=== PATIENT | male | born 1985 | race Caucasian/White ===

== ENCOUNTER 2016-11-08 20:44 | Emergency (ER) | payer OTHER ==
[2016-11-08 21:08] VITALS: BP 124/75; PULSE 45; RESP 16; O2SAT 97
[2016-11-08] MEDS ORDERED: KETOROLAC 30 MG/1 ML SDV IVP ONE (21:09)
--- NOTE | 2016-11-08 21:10 | UCPHY ---
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 He states that he has had upper back pain in the area of T2 or T3 intermittently over the last couple of weeks. It began after he slept awkwardly on the couch. With massage and chiropractic manipulation his pain resolved for a few days. It then returned once he slept awkwardly on the couch again. Has now been present for several days. He has not had any fevers. He denies any trauma. He does not have any weakness numbness paresthesias or deficits. No bowel or bladder abnormalities. No headache. It does hurt with twisting or Muscular back movements. REVIEW OF SYSTEMS: Constitutional: denies: chills, fever, recent illness, recent injury EENTM: denies: blurred vision, double vision, nose congestion Respiratory: denies: cough, shortness of breath Cardiac: denies: chest pain, irregular heart rate, lightheadedness, palpitations Gastrointestinal/Abdominal: denies: abdominal pain, diarrhea, nausea, vomiting, blood streaked stools Genitourinary: denies: dysuria, frequency, hematuria, pain Musculoskeletal: denies: joint pain, muscle pain Skin: denies: lesions, rash, jaundice, bruising Neurological: denies: headache, numbness, paresthesia, tingling, dizziness, weakness Hematologic/Lymphatic: denies: blood clots, easy bleeding, easy bruising Immunologic/allergic: denies: HIV/AIDS, transplant EXAM: GENERAL: Well-appearing, well-nourished and in no acute distress. HEAD: Atraumatic, normocephalic. EYES: Pupils equal round and reactive to light, extraocular movements intact, sclera anicteric, conjunctiva are normal. ENT: TMs normal, nares patent, oropharynx clear without exudates. Moist mucous membranes. NECK: Normal range of motion, supple without lymphadenopathy or JVD. LUNGS: Breath sounds clear to auscultation bilaterally and equal. No wheezes rales or rhonchi. HEART: Regular rate and rhythm without murmurs, rubs or gallops. ABDOMEN: Soft, nontender, normoactive bowel sounds. No guarding, no rebound. No masses appreciated. BACK: No spinal tenderness, no step-offs or deformities. Pain worsened by bending or twisting. No swelling or erythema. EXTREMITIES: Normal range of motion, no pitting or edema. No clubbing or cyanosis. NEUROLOGICAL: Cranial nerves II through XII grossly intact. Normal speech, normal gait. 5/5 strength, normal movement in all extremities, normal sensation PSYCH: Normal mood, normal affect. SKIN: Warm, dry, normal turgor, no visible rashes or lesions. Source: Patient Exam Limitations: No limitations - Personal History Tetanus Vaccine Date: within 10 years - Medical/Surgical History Hx Asthma: No Hx Chronic Respiratory Disease: No Hx Diabetes: No Hx Cardiac Disease: No Hx Renal Disease: No Hx Cirrhosis: No Hx Alcoholism: No Hx HIV/AIDS: No Hx Splenectomy or Spleen Trauma: No Other PMH: R clavicle fx, L2-L4 fx - Family History Significant Family History: No pertinent family hx - Social History Smoking Status: Never smoked Alcohol Use: None Drug Use: None Constitutional: Initial Vital Signs Heart Rate 45 L 11/08/16 20:50 Respiratory Rate 16 11/08/16 20:50 Blood Pressure 124/75 H 11/08/16 20:50 O2 Sat (%) 97 11/08/16 20:50 O2 Delivery Mode Room Air Allergies/Adverse Reactions: No Known Allergies Allergy (Verified 11/08/16 21:01) Home Medications: Medication Instructions Recorded Ketorolac Tromethamine [Toradol] 10 mg PO Q6H #16 tab 11/08/16 Medical Decision Making ED Course/Re-evaluation: Patient does not wish to have imaging done. Do also not feel that it would be beneficial. Patient who is requesting Toradol. We discussed muscle relaxants but there against his professional drug policy. I do not suspect infection or trauma spinal cord injury. We will try anti-inflammatories for the next few days I have instructed him to return follow up with his primary physician if he is not improving. Differential Diagnosis: Partial list of the Differential diagnosis considered include but were not limited to; musculoskeletal pain, spasm and although unlikely based on the history and physical exam, I also considered fracture, infection, tumor, spinal cord injury, meningitis, neuropathy pneumonia, PE. I discussed these differential diagnoses and the plan with the patient as well as the usual and expected course. The patient understands that the diagnosis is provisional and that in medicine we are not always correct and that further workup is often warranted. Usual and customary warnings were given. All of the patient's questions were answered. The patient was instructed to return to the emergency department should the symptoms at all worsen or return, otherwise to followup with the physician as we discussed. Departure - Departure Disposition: Home, Routine, Self-Care Clinical Impression: Back pain Qualifiers: Back pain location: thoracic back pain Chronicity: acute Back pain laterality: midline Qualified Code(s): M54.6 - Pain in thoracic spine Condition: Fair Instructions: Back Pain (ED) Prescriptions: Ketorolac Tromethamine [Toradol] 10 mg PO Q6H #16 tab - PQRS PQRS Measurement: Not applicable
== END 2016-11-08 21:25 | disposition home or self-care (01) ==
LOC: CED 20:44
DX: M54.6 Pain in thoracic spine (principal)
CPT/HCPCS: 96372-PO; G0463-PO; J1885